=== PATIENT | female | born 1955 | race Caucasian/White ===

== ENCOUNTER → 2019-04-02 13:58 | Outpatient (BNVA) | payer OTHER, SELFPAY | PROVIDERS: Visit Provider Nurse Practitioner | DX: S86.911A Strain of unspecified muscle(s) and tendon(s) at lower leg level, right leg, initial encounter (principal); X58.XXXA Exposure to other specified factors, initial encounter; M17.11 Unilateral primary osteoarthritis, right knee | CPT/HCPCS: 73560 ==

== ENCOUNTER → 2019-05-05 09:04 | Outpatient (BNVA) | payer OTHER, SELFPAY | PROVIDERS: Visit Provider Nurse Practitioner | DX: M65.312 Trigger thumb, left thumb (principal); M79.642 Pain in left hand | CPT/HCPCS: 73130 ==

== ENCOUNTER → 2021-09-26 08:22 | Outpatient (BNVA) | payer MEDICARE, SELFPAY | PROVIDERS: Visit Provider Family Medicine | DX: I10 Essential (primary) hypertension (principal) | CPT/HCPCS: 80053; 80061 ==

== ENCOUNTER → 2022-07-01 08:14 | Outpatient (BNVA) | payer MEDICARE, SELFPAY | PROVIDERS: Visit Provider Nurse Practitioner | DX: I10 Essential (primary) hypertension (principal); E78.5 Hyperlipidemia, unspecified | CPT/HCPCS: 80061 ==

== ENCOUNTER → 2023-01-24 10:35 | Outpatient (BNVA) | payer MEDICARE, SELFPAY | PROVIDERS: Visit Provider Nurse Practitioner Family | DX: E55.9 Vitamin D deficiency, unspecified (principal); I10 Essential (primary) hypertension; Z79.899 Other long term (current) drug therapy; E78.2 Mixed hyperlipidemia; E78.5 Hyperlipidemia, unspecified; Z98.890 Other specified postprocedural states | CPT/HCPCS: 80053; 80061; 81003; 82306; 83036; 84443; 85025 ==

== ENCOUNTER 2023-01-29 12:59 | Outpatient (CLI) | payer MEDICARE, SELFPAY ==
--- NOTE | 2023-01-29 13:03 | MM_ITS ---
WS: [id number] Bilateral screening 3D tomosynthesis digital mammogram, 01/29/2023 Clinical Data: SCREENING Comparison: None. Findings: The breast parenchymal pattern shows fibroglandular tissue. No spiculated masses or clustered calcifi cations are seen. There are no secondary signs of carcinoma. Impression: 1. Negative bilateral mammogram with no prior exam for review. 2. Recommend annual screening mammograms. MM/[place] [address] BIRADS: 1-Negative FOLLOW UP: 1 Year Follow-up The CAD radio program checker was used.
== END 2023-01-29 13:00 | disposition home or self-care (01) ==
LOC: MOBLMAM 13:02
PROVIDERS: PCP Nurse Practitioner Family; Visit Provider Nurse Practitioner Family
DX: Z12.31 Encounter for screening mammogram for malignant neoplasm of breast
CPT/HCPCS: 77063; 77067

== ENCOUNTER → 2023-04-28 11:15 | Outpatient (BNVA) | payer MEDICARE, SELFPAY | PROVIDERS: PCP Nurse Practitioner Family; Referring Provider Nurse Practitioner Family; Visit Provider Internal Medicine Cardiovascular Disease | DX: R07.9 Chest pain, unspecified (principal); I25.118 Atherosclerotic heart disease of native coronary artery with other forms of angina pectoris; I10 Essential (primary) hypertension; E78.2 Mixed hyperlipidemia; R73.09 Other abnormal glucose; R94.31 Abnormal electrocardiogram [ECG] [EKG] | CPT/HCPCS: 93005; 99214 ==

== ENCOUNTER → 2023-10-29 09:43 | Outpatient (BNVA) | payer MEDICARE, SELFPAY | PROVIDERS: PCP Nurse Practitioner Family; Visit Provider Internal Medicine Cardiovascular Disease | DX: E78.2 Mixed hyperlipidemia (principal); I25.118 Atherosclerotic heart disease of native coronary artery with other forms of angina pectoris; I10 Essential (primary) hypertension; R73.09 Other abnormal glucose | CPT/HCPCS: 99214 ==

== ENCOUNTER → 2024-03-09 08:06 | Outpatient (BNVA) | payer MEDICARE, SELFPAY | PROVIDERS: PCP Nurse Practitioner Family; Visit Provider Internal Medicine Cardiovascular Disease | DX: E78.5 Hyperlipidemia, unspecified (principal); I25.118 Atherosclerotic heart disease of native coronary artery with other forms of angina pectoris; Z79.899 Other long term (current) drug therapy | CPT/HCPCS: 80061; 80076 ==

== ENCOUNTER → 2024-10-26 09:42 | Outpatient (BNVA) | payer MEDICARE, SELFPAY | PROVIDERS: PCP Nurse Practitioner Family; Visit Provider Internal Medicine Cardiovascular Disease | DX: I25.10 Atherosclerotic heart disease of native coronary artery without angina pectoris (principal); I10 Essential (primary) hypertension; E78.2 Mixed hyperlipidemia; R73.09 Other abnormal glucose; Z98.61 Coronary angioplasty status; Z87.891 Personal history of nicotine dependence; I25.118 Atherosclerotic heart disease of native coronary artery with other forms of angina pectoris | CPT/HCPCS: 99214 ==

== ENCOUNTER → 2024-11-10 15:55 | Outpatient (BNVA) | payer MEDICARE, SELFPAY | PROVIDERS: PCP Nurse Practitioner Family; Visit Provider Nurse Practitioner Family | DX: Z79.899 Other long term (current) drug therapy (principal); I10 Essential (primary) hypertension; E78.2 Mixed hyperlipidemia; R73.09 Other abnormal glucose; E55.9 Vitamin D deficiency, unspecified; I25.118 Atherosclerotic heart disease of native coronary artery with other forms of angina pectoris | CPT/HCPCS: 80053; 80061; 81003; 82306; 83036; 84443; 85025 ==

== ENCOUNTER 2025-01-25 12:26 | Outpatient (CLI) | payer MEDICARE, SELFPAY ==
--- NOTE | 2025-01-25 12:40 | ECG_ITS ---
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 Interpretive Statements Lung unchanged pre/post procedure; Intraprocedure shortess of breath; Symptoms resoled by discharge PROCEDURE: At the baseline, the patient's blood pressure was 148/70 with a heart rate of 83. The baseline electrocardiogram showed normal sinus rhythm with poor R wave progression. Normal ST Ts. The patient exercised for 5 minutes and 53 seconds on a standard Derek protocol. Patient attained a maximum heart rate of 137 beats per minute(90% of the maximum predicted heart rate) with a blood pressure at the peak exercise of 196/82 mm Hg. The EKG at the peak exercise revealed nonspecific ST-T changes. Patient did not have any chest pain or any significant cardiac arrhythmias with the exercise During the recovery phase, there were no new changes. Blood pressure at the end of the recovery phase was 159/59 mm Hg with a heart rate of 89 per minute. CONCLUSION: 1 Nonspecific EKG changes with the treadmill exercise 2. No exercise-induced chest pain or cardiac arrhythmia 3. Slightly impaired exercise tolerance, attained a maximum of 7.0 METs Electronically Signed On 01-30-2025 21:16:42 WOOD MECHANIST by Hugo Alarcon M.D. [email or web address]
[2025-01-25 12:43] VITALS: BMI 27.1
--- NOTE | 2025-01-25 12:50 | USCV_ITS ---
Karen Wood Age: 69 Gender: F : 1955 Exam Date: 01/25/2025 13:01 Ordering Phys: Hugo Alarcon MD ([email or web address]) Technologist: Exam Location: [facility] [place] Indication: cp sob Rhythm: Sinus Patient History: Cardiac Medications: Medications in past 24 hours: Contrast: Stress Results Protocol: Derek Total dose(mL): Exercise Duration (min:sec): METS: Resting HR: 69 Resting BP: 148 / 78 Peak HR: Peak BP: / Max Predicted HR: 152 % Max Predicted HR Target HR: 129 Double Product: Stress Summary: BP Response: Reason for Termination: Cardiac Symptoms: ECG Analysis Resting ECG: Please see separate report Stress ECG: Please see separate report Arrhythmia: Please see separate report MEASUREMENTS (Male/Female) Normal Values FINDINGS At the baseline, the left relative was found to have normal size and ejection fraction. Segmental wall motion analysis revealed no gross wall motion abnormalities. Moderate mitral annular calcification. Thickened aortic valve. Normal aortic root. No pericardial effusion. With the peak exercise, there was good augmentation of all the segments with no exercise-induced wall motion abnormalities. During the recovery phase, the segmental wall motion returned to the baseline. CONCLUSIONS 1. Normal echocardiographic response to exercise. 2. No probability for coronary ischemia, based on the above findings Dr Hugo Alarcon MD [facility] (Electronically Signed) Final Date: 25 January 2025 13:45 S
[2025-01-25 13:18] VITALS: BP 159/59; PULSE 90
== END 2025-01-25 12:27 | disposition home or self-care (01) ==
PROVIDERS: PCP Nurse Practitioner Family; Visit Provider Internal Medicine Cardiovascular Disease
DX: I25.10 Atherosclerotic heart disease of native coronary artery without angina pectoris (principal); R07.9 Chest pain, unspecified; R06.02 Shortness of breath; I34.81 Nonrheumatic mitral (valve) annulus calcification
CPT/HCPCS: 93017; 93350